=== PATIENT | male | born 1935 | race Caucasian/White ===

== ENCOUNTER 2023-10-18 15:34 | Emergency (ER) | payer SELFPAY ==
[~2023-10-18] VITALS: Ht 167.6 cm; Wt 81.7 kg
[2023-10-18 15:46] VITALS: BP 123/74
== END 2023-10-18 18:30 | disposition home or self-care (01) ==
LOC: ER 15:34 → EDSEX 15:34 → ER 18:30
DX: Z04.1 Encounter for examination and observation following transport accident (principal)
CPT/HCPCS: 99283; A9270